=== PATIENT | female | born 1995 | race Caucasian/White ===

== ENCOUNTER 2024-06-30 20:39 | Emergency (ER) | payer OTHER ==
[~2024-06-30] VITALS: Ht 162.6 cm; Wt 99.8 kg
[2024-06-30] MEDS ORDERED: Triamcinolone Inj Susp 40 MG / ML 1ML Vial IM ONE (21:20)
[2024-06-30] MEDS ORDERED: Famotidine 20 MG Tab PO ONE (21:20)
== END 2024-06-30 21:36 | disposition home or self-care (01) ==
LOC: ER 20:39
DX: L50.9 Urticaria, unspecified (principal); Z88.1 Allergy status to other antibiotic agents
CPT/HCPCS: 96372; 99282-25; A9270; J3301